=== PATIENT | male | born 1965 | race Hispanic/Latino ===

== ENCOUNTER → 2017-07-27 | Day surgery (SDC) | payer OTHER ==
[~2017-07-27] VITALS: Ht 172.7 cm; Wt 64.9 kg
--- NOTE | 2017-07-27 08:46 | Operative Report ---
Operative/Inv Procedure Report Surgery Date: 07/27/17 Name of Procedure: Debridement right lateral orbital in preparation for skin graft, full-thickness skin graft 12 cm right eyelid and orbital region Pre-Operative Diagnosis: Extensive basal cell carcinoma Post-Operative Diagnosis: Same Estimated Blood Loss: scant Surgeon/Curriculum Developer: Jorge Merida MD Anesthesia: moderate sedation Operative/Procedure Note Note: Patient is daughter were counseled in regards to the procedure the alternatives risks and expected outcomes as relates to closure of the wound status post excision of a basal cell carcinoma. Talked about injury to the nerves definite visible scarring possibly unsightly or symptomatic recurrence infection bleeding pain and loss of the graft partial or complete. Once agreed informed consent was signed. He was taken to the operating room placed supine on the table intravenous sedation antibiotic given in the face was prepped and draped in usual sterile fashion. Debridement was carried out of the entirety of the wound bed and periphery. No specimens were taken to the fact the last ones were negative. Once the wound was prepared full-thickness graft was harvested from the right shoulder region defatted placed in the wound defect for the dimensions described above and sutured around the periphery as well as a tie-over bolster dressing. 2 layer closure of the donor site. Ends dictation
== END ==
LOC: STS 01:26
DX: Z48.1 Encounter for planned postprocedural wound closure (principal); D04.39 Carcinoma in situ of skin of other parts of face
CPT/HCPCS: J0690; J2250